=== PATIENT | male | born 1955 | race Caucasian/White ===

== ENCOUNTER → 2017-01-26 | Outpatient (CLI) | payer OTHER ==
[~2017-01-26] MED LIST: ASPI-482 PO; ESOM20CA PO; HYDR12.53 PO; NAPR375T3 PO; SIMV10TA PO
--- NOTE | 2017-01-27 00:51 | PAIN ---
DATE OF SERVICE: 01/26/2017 INITIAL CONSULTATION FOR PAIN CLINIC CHIEF COMPLAINT: Low back and right lower extremity pain. HISTORY OF PRESENT ILLNESS: This is a 61-year-old male who presents with history of pain for many years, increased over the past 3-4 months, in the low back, specifically into the right lower extremity, mostly posterior gluteus and posterior lateral thigh on the right, into the posterior lower leg occasionally, worse with activity, standing, walking, is aching primarily at night as well, becoming more constant. The patient reports he injured back in 1993, moving a generator, but has had on and off pain since that time in the low back. At this time, it is not getting better with the usual exercises or stretching. He is doing those exercises, did have some physical therapy in the past, but nothing recently. The patient also taking baclofen which does help. He took it about 4 weeks ago and it was helpful as well. The patient reports pain across the low back, starting to spread into the mid upper back now and into the right leg. Again, worse with standing and walking. The patient reports it does vary from 0 to 10, 10 being the worst, it is a 2 in all categories, family and home responsibilities, recreation, social activity, occupation, self-care, sexual behavior and life support activities. The patient reports he did have an MRI scan done of the lumbar spine showing L5 spondylolysis with grade 2 anterolisthesis L5 on S1 with associated mild to moderate bilateral neural foraminal narrowing. L4-L5 shows a disk desiccation, broad based posterior disk bulge, flattening in the anterior thecal sac, otherwise not significantly remarkable. The patient reports no loss of motor function, but significant fatigability when he is using his right lower extremity such as walking or standing, quicker than the left side. The patient reports about 15-20 minutes on his feet and he is looking to rest somewhere because of the right leg. PAST MEDICAL HISTORY: Significant for hypertension, arthritis, cigarette smoking for the past 23 years, history of . PAST SURGICAL HISTORY: Include appendectomy and tonsillectomy as a child and a vasectomy in 1998. CURRENT MEDICATIONS: Include naproxen, hydrochlorothiazide, aspirin, Nexium, and Zocor. ALLERGIES: The patient has no known drug allergies. FAMILY HISTORY: Significant for esophageal cancer in the patient's father and liver and colon cancer in the patient's mother. SOCIAL HISTORY: The patient drinks about 2 beers daily. He has smoked for about 23 years. He is , lives with his spouse, no children living at home, lives in [place], [place] and is stationed in [place], [place]. REVIEW OF SYSTEMS: The patient's review of systems is positive for those items mentioned in history of present illness. It is complete, full and well documented on the patient's chart. All systems reviewed and otherwise negative. PHYSICAL EXAMINATION: VITAL SIGNS: The patient's blood pressure 139/87, pulse 62, respirations 16, temperature is 98.6 degrees Fahrenheit. Height is 73 inches, weight is 217 pounds. GENERAL: The patient is awake, alert, oriented, appropriate, very pleasant demeanor. HEENT: Shows normocephalic, atraumatic. Extraocular movements are intact and symmetrical. Oral cavity, mucous membranes are moist and pink. Dentition is intact. NECK: Shows anterior throat supple without palpable lymphadenopathy noted. Swallow reflex is symmetrical. CHEST: Shows normal on inspection. Breath sounds are clear to auscultation bilaterally. HEART: Shows S1 and S2 clear. ABDOMEN: Soft, nontender, nondistended. No palpable organomegaly. There is no rebound or guarding demonstrated. BACK: Shows spine grossly midline. Lumbar paraspinous musculature shows some symmetry with inspection of lumbar paraspinous musculature bilaterally, no tenderness over the spinous processes, very mild tenderness in the lumbar paraspinous musculature bilaterally, in the inferior aspect, but without asymmetry, atrophy, hypertrophy. No radiation of pain. The patient's sacrum and sacroiliac regions show no tenderness to palpation as well. The patient shows good rotational motion both laterally as well as extension and flexion of lumbar spine without significant tenderness or difficulty. EXTREMITIES: Lower extremities show deep tendon reflexes at 2+ in the patellar, 1+ tendo-calcaneus tendons, are equal. Motor exam is strong with 5/5 dorsiflexion, extension, quadriceps and hamstring flexion, and symmetrical. Peripheral pulses are 2+ posterior tibial and dorsalis pedis pulses. No peripheral edema is noted. No clubbing, no cyanosis. Lower extremities are warm and dry to touch, equal in color and appearance. The patient is able to stand, stand on his toes without difficulty or loss of balance, walks with a normal appearing gait without any assistive devices at this time. IMPRESSION: 1. This is a 61-year-old male with a long history of low back pain, now with some radicular pain in the right lower extremity is noted. 2. MRI scan of lumbar spine as noted. 3. History of hypertension. 4. Arthritis. PLAN: Options were discussed with the patient including conservative medical management, physical therapy, interventional techniques. He would like to pursue interventional techniques as well as physical therapy. We will order physical therapy at a location close to his place of employment in [place], [place]. Also, we will have the patient preauthorized for a lumbar epidural steroid injection at the L5-S1 level. We discussed the risks and description of the procedure using description as well as anatomical models to describe the procedure. The patient will wait for preauthorization and will plan on return visit performing a lumbar epidural steroid injection at that time. The patient also given Medrol Dosepak with instructions, side effects to be aware of, to see if this may help in the interim, and will return as scheduled. TESS MENJIVAR MD DR: HARMEET/bita JOB#: [id number] / [id number]
== END | disposition home or self-care (01) ==
LOC: PNCL 08:23
PROVIDERS: ATTEND Anesthesiology
DX: M51.36 Other intervertebral disc degeneration, lumbar region (principal)
CPT/HCPCS: 99214